=== PATIENT | male | born 1960 | race Caucasian/White ===

== ENCOUNTER 2021-03-19 05:46 | Inpatient (IN) | payer MEDICAID ==
[2021-03-15 15:43] LABS: BASOPHILS % (AUTO) 0.4 % (0-1); EOSINOPHILS # (AUTO) 0.3 X10'3 (0-0.9); EOSINOPHILS % (AUTO) 3.3 % (0-6); LYMPHOCYTES # (AUTO) 2.7 X10'3 (1.1-4.8); LYMPHOCYTES % (AUTO) 34.3 % (21-51); MEAN CORPUSCULAR HEMOGLOBIN 30.3 PG (27.0-31.0); MEAN CORPUSCULAR HGB CONC 33.9 g/dL (33.0-36.5); MEAN CORPUSCULAR VOLUME 89.6 FL (78-98); MEAN PLATELET VOLUME 8.4 FL (7.4-10.4); MONOCYTES # (AUTO) 1.3 X10'3 (0-0.9); MONOCYTES % (AUTO) 17.2 % (2-12); NEUTROPHILS # (AUTO) 3.5 X10'3 (1.8-7.7); NEUTROPHILS % (AUTO) 44.8 % (42-75); PRE OP HEMATOCRIT 44.1 % (42.0-52.0); PRE OP HEMOGLOBIN 14.9 g/dL (14.0-17.9); PRE OP PLATELET COUNT 252 X10'3 (140-440); RED BLOOD COUNT 4.93 X10'6 (4.70-6.10); RED CELL DISTRIBUTION WIDTH 14.7 % (11.5-14.5)
[2021-03-15 16:17] LABS: ALBUMIN 2.5 G/DL (3.4-5.0); ALBUMIN/GLOBULIN RATIO 0.5 (1.1-1.5); ALKALINE PHOSPHATASE 85 IU/L (46-116); BLOOD UREA NITROGEN 13 MG/DL (7-18); CALCIUM 9.2 MG/DL (8.5-10.1); CHLORIDE 106 MMOL/L (99-107); CREATININE 0.81 MG/DL (0.60-1.10); PRE OP ALT 34 U/L (30-65); PRE OP ANION GAP 5 (8-16); PRE OP AST 18 U/L (10-37); PRE OP BILIRUB, TOTAL 0.4 MG/DL (0.0-1.0); PRE OP GLUCOSE 82 MG/DL (70-104); PRE OP POTASSIUM 4.3 MMOL/L (3.4-5.1); PRE OP SODIUM 144 MMOL/L (135-145); TOTAL CARBON DIOXIDE 33.5 MMOL/L (24-32); TOTAL PROTEIN 7.7 G/DL (6.4-8.2); eGFR > 90 ML/MIN
[2021-03-19] VITALS (18 sets, daily range): BP systolic 103–154; BP diastolic 64–98
[~2021-03-19] VITALS: Ht 177.8 cm; Wt 113.8 kg
[~2021-03-19 05:46] MED LIST: ROSU10TA28 PO; cefazolin/dext.iso 2gm/100ml IV ONE; famotidine 20mg tablet PO ONE
[2021-03-19 06:34] LABS: CLARITY,URINE CLEAR (Clear); COLOR,URINE YELLOW (Yellow); GLUCOSE, URINE NEGATIVE (Neg); KETONES,URINE NEGATIVE (Neg); LEUKOCYTE ESTERASE ,URINE NEGATIVE (Neg); NITRITES, URINE NEGATIVE (Neg); OCCULT BLOOD,URINE MODERATE (Neg); PH,URINE 5.5 (4.8-8.0); PROTEIN,URINE TRACE mg/dl (Neg)
[2021-03-19 06:36] LABS: UA COLLECTION TYPE NON-SPECIFIED
[2021-03-19] MEDS ORDERED: bacitracin 15gm ointment TP ONE (06:36)
[2021-03-19 06:45] LABS: BACTERIA,URINE NONE SEEN /HPF (Neg); MUCUS STRANDS MODERATE /LPF (Neg); SQUAMOUS EPITHELIAL CELL,UR FEW /LPF (FEW); WBC,URINE 0-4 /HPF (0-4)
[2021-03-19] MEDS: ringers solution, lacted 1,000 ML IV SCH ×2 (06:46→13:02)
[2021-03-19] MEDS ORDERED: fentaNYL/PF 50MCG/1 ML 2ML syringe ONE (07:02)
[2021-03-19] MEDS ORDERED: MIDAZolam 1 MG/ML 5ML VIAL ONE (07:02)
[2021-03-19] MEDS ORDERED: propofol inj 20 ML IV ONE (07:40)
[2021-03-19] MEDS ORDERED: ROPIVAcaine 0.5% (5mg/ml) 30ml vial ONE ×2 (07:40)
[2021-03-19] MEDS ORDERED: ROPIVAcaine 0.2% (10 MG/5 ML) BOLUS INJECTION POPLITEAL PRN (08:20)
[2021-03-19] MEDS ORDERED: ringers solution, lacted 1,000 ML IV SCH (08:20)
[2021-03-19] MEDS ORDERED: morphine 4 MG/ML inj SYRINge IV PRN (08:20)
[2021-03-19] MEDS ORDERED: morphine 2 MG/ML inj. syringe IV PRN (08:20)
[2021-03-19] MEDS ORDERED: proCHLORperazine 10 MG/2 ml inj IV PRN (08:20)
[2021-03-19] MEDS ORDERED: ondansetron/PF 4mg/2ml inj IV PRN ×2 (08:20→10:55)
[2021-03-19] MEDS ORDERED: ROPIVAcaine 0.2%/PF PUMP/bolus 545 ML POPLITEAL SCH (08:20)
[2021-03-19] MEDS ORDERED: meperidine/PF 25mg/ml syringe IV PRN ×2 (08:20)
[2021-03-19] MEDS ORDERED: dexamethasone sod phosphate 4mg/ml inj. ONE (10:35)
[2021-03-19] MEDS ORDERED: ondansetron/PF 4mg/2ml inj ONE (10:36)
[2021-03-19] MEDS ORDERED: HYDROcodone/acetaminophen 10/325mg tab PO PRN (10:55)
[2021-03-19] MEDS ORDERED: bisacodyl 10mg suppository rectal RC PRN (10:55)
[2021-03-19] MEDS ORDERED: acetaminophen 325mg tablet PO PRN (10:55)
[2021-03-19] MEDS ORDERED: diphenhydrAMINE 25mg capsule PO PRN ×2 (10:55)
[2021-03-19] MEDS ORDERED: magnesium hydroxide 30ml (MOM) UD suspension PO PRN (10:55)
--- NOTE | 2021-03-19 10:58 | NUR ---
Received from OR via BED, accompanied by Anesthesiologist DR AWAN and report given by Anesthesiologist. PT DROWSY, LEFT FOOT/ANKLE IN SPLINT W/UCHE WRAP COVERING FROM TOES TO BELOW KNEE CDI. TOES PWD, OTHER SPATIAL SCIENTIST 1-2 SECONDS. Addendum: 03/19/21 at 1135 by Mary Jane Lindsey RN Amended: Links added.
[2021-03-19] MEDS: meperidine/PF 25mg/ml syringe IV PRN ×2 (11:22→11:35)
--- NOTE | 2021-03-19 12:08 | NUR ---
Report called to receiving nurse. Transferred via BED, 1 LARGE DUFFLE BAG AND 1 Belongings BAG SENT W/PT TO ROOM 401, RECEIVING RN AT BEDSIDE TO RECEIVE PT, BLL, CALL LIGHT GIVEN, SIDE RAILS UP X 2. Special Issues communicated to receiving nurse. YES. Addendum: 03/19/21 at 1254 by Mary Jane Lindsey RN Amended: Links added.
[2021-03-19] MEDS ORDERED: magnesium 4gm in 100ml NS 100 ML IV PRN (18:50)
[2021-03-19] MEDS ORDERED: magnesium Cl slow-release 64mg tablet PO PRN (18:50)
[2021-03-19] MEDS ORDERED: potassium Cl 20 mEq SR tablet PO PRN ×2 (18:50)
[2021-03-19] MEDS ORDERED: potassium Cl 40MEQ/1/2NS 520ml 520 ML IV PRN (18:50)
[2021-03-19] MEDS: potassium cl 20mEq in 1/2 NS 1,000 ML IV SCH ×2 (18:55→20:52)
[2021-03-19] MEDS: ceFAZolin/D5W- 1GM premix 50 ML IV SCH (19:44)
[2021-03-19] MEDS: K and/or MAG REPLACEMENT MC SCH (20:00)
[2021-03-19] MEDS ORDERED: sennosides 8.6mg tablet PO SCH (21:00)
[2021-03-20 02:00] VITALS: BP 111/73
[2021-03-20] MEDS: ceFAZolin/D5W- 1GM premix 50 ML IV SCH (03:00)
[2021-03-20] MEDS: potassium cl 20mEq in 1/2 NS 1,000 ML IV SCH ×2 (03:07→11:03)
[2021-03-20] MEDS: HYDROcodone/acetaminophen 10/325mg tab PO PRN ×2 (05:36→13:29)
--- NOTE | 2021-03-20 06:24 | NUR ---
Patient in room ORTHO 4015. I have received report from Cynthia PALOMINO and had the opportunity to ask questions and assume patient care.
[2021-03-20 06:41] VITALS: BP 115/74
[2021-03-20 06:45] LABS: BASOPHILS # (AUTO) 0.1 X10'3 (0-0.2); BASOPHILS % (AUTO) 0.4 % (0-1); EOSINOPHILS % (AUTO) 0 % (0-6); HEMATOCRIT 40.4 % (42.0-52.0); HEMOGLOBIN 13.7 g/dl (14.0-17.9); LYMPHOCYTES # (AUTO) 2.6 X10'3 (1.1-4.8); LYMPHOCYTES % (AUTO) 15.8 % (21-51); MEAN CORPUSCULAR HEMOGLOBIN 30.3 PG (27.0-31.0); MEAN CORPUSCULAR HGB CONC 33.8 g/dL (33.0-36.5); MEAN CORPUSCULAR VOLUME 89.6 FL (78-98); MEAN PLATELET VOLUME 8.8 FL (7.4-10.4); MONOCYTES # (AUTO) 1.7 X10'3 (0-0.9); MONOCYTES % (AUTO) 10.3 % (2-12); NEUTROPHILS % (AUTO) 73.5 % (42-75); PLATELET COUNT 236 X10'3 (140-440); RED BLOOD COUNT 4.51 X10'6 (4.70-6.10); RED CELL DISTRIBUTION WIDTH 14.1 % (11.5-14.5); WHITE BLOOD COUNT 16.3 X10'3 (4.5-11.0)
[2021-03-20 07:13] LABS: ALANINE AMINOTRANSFERASE 35 U/L (12-78); ALBUMIN/GLOBULIN RATIO 0.8 (1.1-1.5); ALKALINE PHOSPHATASE 57 IU/L (46-116); ANION GAP 9 (8-16); ASPARTATE AMINO TRANSFERASE 42 U/L (10-37); BILIRUBIN,TOTAL 0.8 MG/DL (0.1-1.0); BLOOD UREA NITROGEN 11 MG/DL (7-18); BUN/CREATININE RATIO 13.8 (5.4-32.0); CALCIUM 8.2 MG/DL (8.5-10.1); CHLORIDE 104 MMOL/L (99-107); GLUCOSE 116 MG/DL (70-104); PHOSPHORUS 3.1 MG/DL (2.3-4.5); SODIUM 140 MMOL/L (135-145); TOTAL CARBON DIOXIDE 26.8 MMOL/L (24-32); TOTAL PROTEIN 6.8 G/DL (6.4-8.2); eGFR > 90 ML/MIN
[2021-03-20] MEDS ORDERED: atorvastatin 20mg tablet PO SCH (08:00)
[2021-03-20] MEDS: K and/or MAG REPLACEMENT MC SCH (08:00)
[2021-03-20] MEDS ORDERED: aspirin 325mg tablet PO SCH (08:30)
[2021-03-20 10:09] VITALS: BP 120/63
[2021-03-20 11:31] LABS: CHOLESTEROL 155 MG/DL (0-200); HDL CHOLESTEROL 39 MG/DL (35-60); LDL CHOLESTEROL 95 MG/DL (50-100); TRIGLYCERIDES 114 MG/DL (20-135)
[2021-03-20 11:54] LABS: HEMOGLOBIN A1C 6.1 % (4.5-6.2)
--- NOTE | 2021-03-20 11:57 | NUR ---
PAGER ID: [phone] MESSAGE: [id number], Lexis snyder came back normal, patient is cleared by ortho to go home. Lives in [place] and needs to be discharged by 1 to get to the pharmacy to get pain medications. Thanks, sheri ext [phone]
--- NOTE | 2021-03-20 13:38 | NUR ---
Patient discharged to home in a lyft, iv removed cannula intact no s/s of phlebitis. DC instructions given to the patient and he verbalized understanding. Medicated with norco prior to discharge as he lives in [place].
--- NOTE | 2021-03-21 16:11 | NUR ---
Prior to dc patient had arranged for his medications to be picked up at the [facility] in [place] and they had told him they had the pain medication in stock. On 03/21 patient called and said [facility] did not have it in stock, called to pharmacy and they indeed did not have it in stock. [facility] is not able to transfer the prescription to the other [facility] that is also in [place] since it is a controlled substance. Placed call to [facility] answering service and recieved a call from Dr. Izaguirre, let him know what was going on and he called in a prescription to [facility] for Azle for the patient.
== END 2021-03-20 13:30 | disposition home or self-care (01) | DRG 313 ==
LOC: PAS 05:46 → PAS IN 10:54 → ORTHO 4S 12:15 → EDSTATUS 13:30
PROVIDERS: ADMIT Podiatrist Foot & Ankle Surgery; ATTEND Podiatrist Foot & Ankle Surgery
PROC: 0SRG0J9 Replacement of Left Ankle Joint with Synthetic Substitute, Cemented, Open Approach (ICD-10-PCS; principal; 2021-03-19 06:57)
DX: M19.072 Primary osteoarthritis, left ankle and foot (principal); E78.5 Hyperlipidemia, unspecified; I10 Essential (primary) hypertension; Z79.899 Other long term (current) drug therapy; Z80.8 Family history of malignant neoplasm of other organs or systems
CPT/HCPCS: 36415; 73600; 76000; 80053; 80061; 81001; 82948; 83036; 83735; 84100; 84145; 84443; 85025; 87081; 97116; 97161; 97530; G0378; J0690; J1100; J2175; J2250; J2270; J2405; J2704; J2795; J3010; J3480; J7120; U0003; U0005